=== PATIENT | female | born 1990 | race Asian ===

== ENCOUNTER 2023-12-20 09:14 | Emergency (ER) | payer MEDICAID, OTHER ==
[~2023-12-20] VITALS: Ht 154.9 cm; Wt 52.9 kg
[2023-12-20 10:24] LABS: Basophils # (auto) 0 10 ^3/uL (0-0.2); Basophils % (auto) 0.1 % (0.0-2.0); Eosinophils # (auto) 0.2 10 ^3/uL (0-0.8); Eosinophils % (auto) 2.4 % (0.0-7.0); Hemoglobin 12.3 g/dL (12.2-16.2); Lymphocytes # (auto) 1.3 10 ^3/uL (0.4-5.4); Lymphocytes % (auto) 13.1 % (10.0-50.0); Mean Corpuscular Hemoglobin 30.8 pg (28.0-32.0); Mean Corpuscular Hgb Conc. 33.3 g/dL (32.0-36.0); Mean Corpuscular Volume 92.6 fL (80.0-100.0); Monocytes # (auto) 0.6 10 ^3/uL (0-1.3); Monocytes % (auto) 5.6 % (0.0-12.0); Neutrophils % (auto) 78.8 % (37.0-80.0); Red Blood Cells 3.99 10^6/uL (4.0-5.20); Red Cell Distribution Width 13.9 % (11.8-14.3); White Blood Cell 10.2 10^3/uL (4.4-10.8)
[2023-12-20 10:25] LABS: Urine Bacteria FEW /hpf (None Seen); Urine Blood 3+ /uL (Negative); Urine Clarity Clear (Clear); Urine Color Light-Yellow (Yellow); Urine Protein, UAD Negative (Negative); Urine Urobilinogen Normal (Negative); Urine WBC 4 /hpf (0 - 5); Urine pH 6.5 (5.0-9.0)
[2023-12-20 10:55] LABS: Alanine Aminotransferase 39 U/L (7-40); Albumin 3.8 g/dL (3.2-4.8); Alkaline Phosphatase 52 U/L (46-116); Anion Gap 6 (5-15); Aspartate Aminotransferase 22 U/L (13-40); BUN/Creatinine Ratio 18.6 (10.0-20.0); Blood Urea Nitrogen 8 mg/dL (9-23); Calcium 8.6 mg/dL (8.5-10.1); Carbon Dioxide 26 mmol/L (20-30); Chloride 106 mmol/L (98-107); Glucose 117 mg/dL (74-106); Potassium 3.8 mmol/L (3.5-5.1); Sodium 138 mmol/L (136-145)
[2023-12-20 10:56] LABS: Bilirubin, Total 0.3 mg/dL (0.2-1.0); Total Protein 6.2 g/dL (5.7-8.2)
[2023-12-20 10:59] LABS: INR 0.94 (0.9-1.15); Partial Thromboplastin Time 25.4 SEC (24.5-34.5)
[2023-12-20] MEDS ORDERED: CEPH500T PO (11:52)
[2023-12-20 12:16] VITALS: BP 106/62; TEMP 98.7
[2023-12-20 12:17] VITALS: PULSE 90; RESP 16; O2SAT 99
== END 2023-12-20 12:19 | disposition home or self-care (01) ==
LOC: ER 09:14
DX: O23.42 Unspecified infection of urinary tract in pregnancy, second trimester (principal); R10.2 Pelvic and perineal pain; O26.892 Other specified pregnancy related conditions, second trimester; N39.0 Urinary tract infection, site not specified; Z3A.18 18 weeks gestation of pregnancy
CPT/HCPCS: 36415; 76805; 80053; 81001; 84702; 85025; 85610; 85730

== ENCOUNTER 2024-05-17 08:35 | Inpatient (IN) | payer MEDICAID ==
[~2024-05-17] VITALS: Ht 152.4 cm; Wt 63.5 kg
[~2024-05-17 08:35] MED LIST: CEPH500T PO
[2024-05-17] MEDS ORDERED: BUTORPHANOL TARTRATE 2 MG/1 ML VIAL IV PRN ×2 (09:00)
[2024-05-17] MEDS ORDERED: PREN-96 PO (09:10)
[2024-05-17 09:38] LABS: Basophils # (auto) 0 10 ^3/uL (0-0.2); Basophils % (auto) 0.1 % (0.0-2.0); Eosinophils # (auto) 0.1 10 ^3/uL (0-0.8); Eosinophils % (auto) 0.7 % (0.0-7.0); Hematocrit 44.4 % (36.0-46.0); Hemoglobin 15.4 g/dL (12.2-16.2); Lymphocytes # (auto) 1.4 10 ^3/uL (0.4-5.4); Mean Corpuscular Hemoglobin 31.8 pg (28.0-32.0); Mean Corpuscular Hgb Conc. 34.7 g/dL (32.0-36.0); Mean Corpuscular Volume 91.7 fL (80.0-100.0); Monocytes # (auto) 0.8 10 ^3/uL (0-1.3); Monocytes % (auto) 7.1 % (0.0-12.0); Neutrophils # (auto) 8.5 10 ^3/uL (1.6-8.6); Neutrophils % (auto) 79.1 % (37.0-80.0); Nucleated Red Blood Cells % 0.1 %; Platelet Count (auto) 183 10^3/uL (140-450); Red Blood Cells 4.84 10^6/uL (4.0-5.20); Red Cell Distribution Width 13.6 % (11.8-14.3); White Blood Cell 10.7 10^3/uL (4.4-10.8)
[2024-05-17 09:48] LABS: Urine Bacteria None Seen /hpf (None Seen)
[2024-05-17 09:51] LABS: Alanine Aminotransferase 18 U/L (7-40); Albumin 4.1 g/dL (3.2-4.8); Alkaline Phosphatase 185 U/L (46-116); Anion Gap 10 (5-15); Aspartate Aminotransferase 16 U/L (13-40); BUN/Creatinine Ratio 12.3 (10.0-20.0); Bilirubin, Total 0.6 mg/dL (0.2-1.0); Blood Urea Nitrogen 7 mg/dL (9-23); Calcium 9.3 mg/dL (8.7-10.4); Carbon Dioxide 23 mmol/L (20-31); Chloride 104 mmol/L (98-107); Glucose 142 mg/dL (74-106); Potassium 3.4 mmol/L (3.5-5.1); Sodium 137 mmol/L (136-145); Total Protein 6.9 g/dL (5.7-8.2)
[2024-05-17 10:05] LABS: Urine Blood Negative /uL (Negative); Urine Clarity Turbid (Clear); Urine Color Light-Yellow (Yellow); Urine Protein, UAD Negative (Negative); Urine Specific Gravity 1.006 (1.001-1.035); Urine Urobilinogen Normal (Negative); Urine WBC 13 /hpf (0 - 5)
[2024-05-17 10:14] LABS: INR 0.92 (0.9-1.15); Partial Thromboplastin Time 26.1 SEC (24.5-34.5); Prothrombin Time 9.8 sec (9.3-11.8)
[2024-05-17] MEDS ORDERED: TERBUTALINE SULFATE 1 MG/ML 1ML VIAL SC PRN (10:15)
[2024-05-17 10:19] LABS: Amphetamine Screen, Urine Neg (NEGATIVE); Barbiturate Scree,Urine Neg (NEGATIVE); Benzodiazephine Screen, Urine Neg (NEGATIVE); Cannabinoid Screen, Urine Neg (NEGATIVE); Cocaine Screen, Urine Neg (NEGATIVE); Opiate Scree,Urine Neg (NEGATIVE); Phencyclidine Screen, Urine Neg (NEGATIVE)
--- NOTE | 2024-05-17 10:56 | DVHHP2 ---
OB CC & HPI Date Date of Admission: May 17, 2024 Patient Identification: : 2 Para: 1 EDC: May 17, 2024 EGA: 40.0wks Chief Complaints: Reason for admission: induction of labor Indication for induction: post dates, other (AMA) History of Present Complaints 34yo IUP@40.0wks presents for scheduled induction for AMA/post dates. Denies UCs/LOF/VB/HUMPHREY/vision changes/RUQ pain. Endorses +FM. PNC: Routine PNC with Dr. Baugh at [facility] (formerly [facility])[3], adequate visits, PNC uncomplicated. GTT wnl, dating based on LMP c/w 15wk sono, GBS negative. OB hx: x1, uncomplicated Past Medical History Cardiac: No pertinent Hx Pulmonary: No pertinent Hx Central Nervous System: No pertinent Hx GI: No pertinent Hx Hemotology/Oncology: No pertinent Hx Hepatobiliary: No pertinent Hx Psychiatric: No pertinent Hx Musculoskeletal: No pertinent Hx Rheumotologic: No pertinent Hx Infectious Disease: No peritnent Hx ENT: No pertinent Hx Renal/: No pertinent Hx Endocrine: No pertinent Hx Dermatology: No pertinent Hx Past Surgical History: Other (right clavicle surgery x2) OB History OB History Care: Good Care Ultrasounds: Normal mid trimester US Obstetrical Complications: None Medical Complications: None Allergies: Coded Allergies: NO KNOWN ALLERGIES (Unverified , 12/20/23) Allergies NKDA Home Meds Active Scripts Cephalexin Monohydrate (Cephalexin) 500 Mg Tab, 1 TAB PO TID for 7 Days, #21 TAB Prov:REECEVALANJANA Joe DO 12/20/23 Reported Medications Vit W/ Ferrous Fumara ( One Daily) Daily Tab, 1 TAB PO DAILY, #90 TAB 3 Refills 05/17/24 Current Medications Current Medications Medications (Trade) Dose Ordered Sig/Christiano Route PRN Reason Start Time Stop Time Status Last Admin Lactated Ringer's 1,000 ml @ 125 mls/hr Q8H IV 05/17/24 09:00 Lydia Culver (Tucks) 1 pad PRN PRN TOP PERINEAL AREA DISCOMFORT 05/17/24 09:00 Sodium Lauryl Sulfate (Phisoderm) 240 ml PRN PRN TOP PERINEAL AREA DISCOMFORT 05/17/24 09:00 Benzocaine (Dermoplast) 1 applic PRN PRN TOP PERINEAL AREA DISCOMFORT 05/17/24 09:00 Butorphanol Tartrate (Stadol Injection) 1 mg Q4HPRN PRN IV MODERATE PAIN (4-6 PAIN SCALE) 05/17/24 09:00 Butorphanol Tartrate (Stadol Injection) 2 mg Q4HPRN PRN IV SEVERE PAIN (7-10 PAIN SCALE) 05/17/24 09:00 Lidocaine HCl (Xylocaine) 20 ml ONCE PRN IJ PERINEAL AREA DISCOMFORT 05/17/24 09:00 Oxytocin 1,000 ml @ 6 ml/hr Q24H IV 05/17/24 10:15 Terbutaline Sulfate (Brethine Inj) 0.25 mg ONCE PRN SC Uterine tachysystole 05/17/24 10:15 Family & Social History Family/Social History Past Family/Social History: denies Blood Type: AB+ Rubella: immune RPR/VDRL: Negative GBS Status: Negative HBsAG: Negative Review of Systems Constitutional: No symptom reported Ears, Nose, & Throat: No symptom reported Eyes: No symptom reported Pulmonary/Respiratory: No symptom reported Cardiovascular: No symptom reported Gastrointestinal: No symptom reported Genitourinary: No symptom reported Musculoskeletal: No symptom reported Skin: No symptom reported Psychiatric: No symptom reported Endocrine: No symptom reported Hemotologic/Lymphatic: No symptom reported OB Admission Exam Physical Exam Vitals: VSS, see chart HEENT: TMs Normal, Fontanelles Normal, Nasal Mucosa Normal, Eyes non-injected, Oropharynx Normal, PERRLA, Moist Membranes, EOMI Heart: Rhythm Normal Lungs: Clear Abdomen: Gravid Extremities: Normal Reflexes: Normal Pelvic Exam: EFW 7lbs 10oz SVE: 3/60/-2, vertex, reed balloon placed with 60ml NS (pt consented) Membranes: Intact Heart Rate: 150's Accelerations: Accelerations Present Decelerations: No Decelerations Rug Touch Up Painter Variability: Minimal (3-5) Contractions on Admission: 6-10 Minutes Apart Intensity: Mild OB Plan Plan Admitting Diagnosis: Induction of labor Plan: Induction (by CRB (reed balloon)) Other Plan: A: 34yo IUP@40.0wks Induction of Labor Category II EFM Intact Membranes GBS negative P: Admit to L&D Informed consent obtained Discussed risks, benefits, alternatives of IOL with CRB (reed balloon) then IV pitocin. Pt consents to POC. Intrauterine resuscitation IV fluid bolus and position change done, continue PRN RN to apply traction to CRB q1hr. Start IV pitocin when Category I EFM monitoring per order Routine labs ordered Pain mgmt PRN Frequent position changes in and out of bed encouraged Limit SVE unless necessary Anticipate CNM will consult with DENISE Moreno CNM May 17, 2024 10:56
[2024-05-17] MEDS: LACT. RINGERS/OXYTOCIN 20UNITS 1,000 ML IV SCH (13:11)
[2024-05-17] MEDS: HYDROCORTONE 1% TOPICAL CREAM 30 GM TUBE TOP PRN (14:58)
[2024-05-17] MEDS: DERMOPLAST 60ML BOTTLE TOP PRN (15:02)
[2024-05-17] MEDS: WITCH HAZEL-GLYCERIN PAD TOP PRN (15:02)
[2024-05-17] MEDS: PHISODERM TOP SOLN 240ML BTL TOP PRN (15:02)
[2024-05-17] MEDS: LACTATED RINGER'S 1,000 ML IV SCH (15:03)
[2024-05-17] MEDS: POTASSIUM CHL 20 Meq TABLET PO ONE (17:16)
--- NOTE | 2024-05-17 20:27 | DVHPN2 ---
[facility] Labor Progress Note Date and Time Seen Date Seen: May 17, 2024 Time Seen: 17:52 Subjective Patient reports: No new complaints Objective Vital Signs VSS, see chart Laboratory Tests Test 05/17/24 08:45 05/17/24 09:00 Range/Units Urine Color Light-yellow Yellow Urine Clarity Turbid H Clear Urine pH 6.0 5.0-9.0 Urine Specific [place] 1.006 1.001-1.035 Urine Protein Negative Negative Urine Ketones Negative Negative Urine Blood Negative Negative /uL Urine Nitrite Negative Negative Urine Bilirubin Negative Negative Urine Urobilinogen Normal Negative mg/dL Urine Leukocyte Esterase 3+ Negative /uL Urine RBC 3 0 - 4 /hpf Urine WBC 13 0 - 5 /hpf Urine Squamous Epithelial Cells Mod <5 /hpf Urine Bacteria None seen None Seen /hpf Urine Glucose 3+ H Normal mg/dL Urine Opiates Screen Neg NEGATIVE Urine Fentanyl Screen Neg NEGATIVE Urine Barbiturates Screen Neg NEGATIVE Urine Phencyclidine Screen Neg NEGATIVE Urine Amphetamines Screen Neg NEGATIVE Urine Benzodiazepines Screen Neg NEGATIVE Urine Cocaine Screen Neg NEGATIVE Urine Cannabinoids Screen Neg NEGATIVE White Blood Count 10.7 4.4-10.8 10^3/uL Red Blood Count 4.84 4.0-5.20 10^6/uL Hemoglobin 15.4 12.2-16.2 g/dL Hematocrit 44.4 36.0-46.0 % Mean Corpuscular Volume 91.7 80.0-100.0 fL Mean Corpuscular Hemoglobin 31.8 28.0-32.0 pg Mean Corpuscular Hemoglobin Concent 34.7 32.0-36.0 g/dL Red Cell Distribution Width 13.6 11.8-14.3 % Platelet Count 183 140-450 10^3/uL Mean Platelet Volume 8.3 6.9-10.8 fL Neutrophils (%) (Auto) 79.1 37.0-80.0 % Lymphocytes (%) (Auto) 13.0 10.0-50.0 % Monocytes (%) (Auto) 7.1 0.0-12.0 % Eosinophils (%) (Auto) 0.7 0.0-7.0 % Basophils (%) (Auto) 0.1 0.0-2.0 % Neutrophils # (Auto) 8.5 1.6-8.6 10 ^3/uL Lymphocytes # (Auto) 1.4 0.4-5.4 10 ^3/uL Monocytes # (Auto) 0.8 0-1.3 10 ^3/uL Eosinophils # (Auto) 0.1 0-0.8 10 ^3/uL Basophils # (Auto) 0 0-0.2 10 ^3/uL Nucleated Red Blood Cells 0.1 % Prothrombin Time 9.8 9.3-11.8 sec Prothrombin Time INR 0.92 0.9-1.15 Activated Partial Thromboplast Time 26.1 24.5-34.5 SEC Sodium Level 137 136-145 mmol/L Potassium Level 3.4 L 3.5-5.1 mmol/L Chloride Level 104 98-107 mmol/L Carbon Dioxide Level 23 20-31 mmol/L Anion Gap 10 5-15 Blood Urea Nitrogen 7 L 9-23 mg/dL Creatinine 0.57 0.550-1.02 mg/dL Glomerular Filtration Rate Calc 121 >90 mL/min BUN/Creatinine Ratio 12.3 10.0-20.0 Serum Glucose 142 H 74-106 mg/dL Calcium Level 9.3 8.7-10.4 mg/dL Total Bilirubin 0.6 0.2-1.0 mg/dL Aspartate Amino Transferase (AST) 16 13-40 U/L Alanine Aminotransferase (ALT) 18 7-40 U/L Alkaline Phosphatase 185 H 46-116 U/L Total Protein 6.9 5.7-8.2 g/dL Albumin 4.1 3.2-4.8 g/dL Rapid Plasma Reagin Pending Treponema pallidum Ab (TP-PA) Pending Hepatitis C Antibody Negative Negative Monitoring Method Monitoring Method: External Heart Rate Heart Rate Baseline: 145 Heart Rate Variability: Minimal (periods of moderate variability) Presence of FHR Accelerations: Yes Presence of FHR Decelerations: No Are all 5 Components of the FH: Yes Contractions Contractions Frequency: Other (q2-3 min) Duration of Contraction: 90 Contractions Intensity: Moderate Contractions Resting Tone: Relaxed Membranes Membranes: Intact Vaginal Exam Vag Exam Deferred: Yes (SVE by RN: /-2, reed CRB is out) Vaginal Exam Presentation: VTX Medications Medications - Pitocin: Yes (decreased to 6mu) Medications - Pain Medications: PRN Medication - Epidural: No Lab Results Lab Results Current Medications Medications (Trade) Dose Ordered Sig/Christiano Start Time Stop Time Status Last Admin Dose Admin Lactated Ringer's 1,000 ml @ 125 mls/hr Q8H 05/17/24 09:00 05/17/24 18:53 125 MLS/HR Lydia Culver (Tucks) 1 pad PRN PRN 05/17/24 09:00 05/17/24 15:02 1 PAD Sodium Lauryl Sulfate (Phisoderm) 240 ml PRN PRN 05/17/24 09:00 05/17/24 15:02 240 ML Benzocaine (Dermoplast) 1 applic PRN PRN 05/17/24 09:00 05/17/24 15:02 1 APPLIC Butorphanol Tartrate (Stadol Injection) 1 mg Q4HPRN PRN 05/17/24 09:00 Butorphanol Tartrate (Stadol Injection) 2 mg Q4HPRN PRN 05/17/24 09:00 Lidocaine HCl (Xylocaine) 20 ml ONCE PRN 05/17/24 09:00 Oxytocin 1,000 ml @ 6 ml/hr Q24H 05/17/24 10:15 05/17/24 13:11 6 ML/HR Terbutaline Sulfate (Brethine Inj) 0.25 mg ONCE PRN 05/17/24 10:15 Oxytocin 500 ml @ 999 mls/hr Q31M ONCE 05/17/24 10:15 05/17/24 10:45 DC Oxytocin 500 ml @ 125 mls/hr Q4H ONCE 05/17/24 10:45 05/17/24 14:44 DC Hydrocortisone (Hydrocortisone 1% Cream) 1 applic TID PRN 05/17/24 10:15 05/17/24 14:58 1 APPLIC Potassium Chloride (Klor-Con Tablet) 40 meq ONCE ONCE 05/17/24 15:00 05/17/24 15:10 DC 05/17/24 17:16 40 MEQ Laboratory Tests Test 05/17/24 09:00 05/17/24 08:45 Range/Units White Blood Count 10.7 4.4-10.8 10^3/uL Red Blood Count 4.84 4.0-5.20 10^6/uL Hemoglobin 15.4 12.2-16.2 g/dL Hematocrit 44.4 36.0-46.0 % Mean Corpuscular Volume 91.7 80.0-100.0 fL Mean Corpuscular Hemoglobin 31.8 28.0-32.0 pg Mean Corpuscular Hemoglobin Concent 34.7 32.0-36.0 g/dL Red Cell Distribution Width 13.6 11.8-14.3 % Platelet Count 183 140-450 10^3/uL Mean Platelet Volume 8.3 6.9-10.8 fL Neutrophils (%) (Auto) 79.1 37.0-80.0 % Lymphocytes (%) (Auto) 13.0 10.0-50.0 % Monocytes (%) (Auto) 7.1 0.0-12.0 % Eosinophils (%) (Auto) 0.7 0.0-7.0 % Basophils (%) (Auto) 0.1 0.0-2.0 % Neutrophils # (Auto) 8.5 1.6-8.6 10 ^3/uL Lymphocytes # (Auto) 1.4 0.4-5.4 10 ^3/uL Monocytes # (Auto) 0.8 0-1.3 10 ^3/uL Eosinophils # (Auto) 0.1 0-0.8 10 ^3/uL Basophils # (Auto) 0 0-0.2 10 ^3/uL Nucleated Red Blood Cells 0.1 % Prothrombin Time 9.8 9.3-11.8 sec Prothrombin Time INR 0.92 0.9-1.15 Activated Partial Thromboplast Time 26.1 24.5-34.5 SEC Sodium Level 137 136-145 mmol/L Potassium Level 3.4 L 3.5-5.1 mmol/L Chloride Level 104 98-107 mmol/L Carbon Dioxide Level 23 20-31 mmol/L Anion Gap 10 5-15 Blood Urea Nitrogen 7 L 9-23 mg/dL Creatinine 0.57 0.550-1.02 mg/dL Glomerular Filtration Rate Calc 121 >90 mL/min BUN/Creatinine Ratio 12.3 10.0-20.0 Serum Glucose 142 H 74-106 mg/dL Calcium Level 9.3 8.7-10.4 mg/dL Total Bilirubin 0.6 0.2-1.0 mg/dL Aspartate Amino Transferase (AST) 16 13-40 U/L Alanine Aminotransferase (ALT) 18 7-40 U/L Alkaline Phosphatase 185 H 46-116 U/L Total Protein 6.9 5.7-8.2 g/dL Albumin 4.1 3.2-4.8 g/dL Rapid Plasma Reagin Pending Treponema pallidum Ab (TP-PA) Pending Hepatitis C Antibody Negative Negative Urine Color Light-yellow Yellow Urine Clarity Turbid H Clear Urine pH 6.0 5.0-9.0 Urine Specific [place] 1.006 1.001-1.035 Urine Protein Negative Negative Urine Ketones Negative Negative Urine Blood Negative Negative /uL Urine Nitrite Negative Negative Urine Bilirubin Negative Negative Urine Urobilinogen Normal Negative mg/dL Urine Leukocyte Esterase 3+ Negative /uL Urine RBC 3 0 - 4 /hpf Urine WBC 13 0 - 5 /hpf Urine Squamous Epithelial Cells Mod <5 /hpf Urine Bacteria None seen None Seen /hpf Urine Glucose 3+ H Normal mg/dL Urine Opiates Screen Neg NEGATIVE Urine Fentanyl Screen Neg NEGATIVE Urine Barbiturates Screen Neg NEGATIVE Urine Phencyclidine Screen Neg NEGATIVE Urine Amphetamines Screen Neg NEGATIVE Urine Benzodiazepines Screen Neg NEGATIVE Urine Cocaine Screen Neg NEGATIVE Urine Cannabinoids Screen Neg NEGATIVE Assessment Assessment A: 34yo IUP@40.0wks Induction of Labor Category II EFM Intact Membranes GBS negative Plan Plan P: Continue IV pitocin titration per order monitoring per order Pain mgmt PRN Frequent position changes in and out of bed encouraged Limit SVE unless necessary Anticipate CNM will consult with Dr. Baugh PRN Plan discussed with: Patient, Spouse JEREMIEDENISE LOVELACE CNM May 17, 2024 20:27
[2024-05-18] VITALS (13 sets, daily range): BP systolic 87–105; BP diastolic 46–75; PULSE 102–117; RESP 14–18; TEMP 98.2–98.4; O2SAT 93–99
[2024-05-18] MEDS ORDERED: NALOXONE HCL 0.4 MG/ML VIAL IV ONE
[2024-05-18] MEDS ORDERED: METHYLERGONOVINE MALEATE 0.2 MG/ML AMP IM PRN
[2024-05-18] MEDS: LACTATED RINGER'S 1,000 ML IV ONE (00:09)
--- NOTE | 2024-05-18 00:40 | DVHPN2 ---
[facility] Labor Progress Note Date and Time Seen Date Seen: May 18, 2024 Time Seen: 00:28 Subjective Patient reports: Feels worse Subjective Comment Pt wants epidural and thinks her water broke. Objective Vital Signs VSS, see chart Vaginal bleeding noted with clots, no fluid noted on chux pad STAT sono done at bedside prior to SVE, ruled out placental abruption Monitoring Method Monitoring Method: External Heart Rate Heart Rate Baseline: 145 Heart Rate Variability: Minimal Presence of FHR Accelerations: No Presence of FHR Decelerations: Yes Heart Rate Type of Decel: Variable Decelerations, Late Decelerations Are all 5 Components of the FH: Yes Contractions Contractions Frequency: Other (q1.5-3min) Duration of Contraction: 100 Contractions Intensity: Moderate Contractions Resting Tone: Relaxed Membranes Membranes: Bulging Vaginal Exam Vag Exam Deferred: No Vaginal Exam Dilation: 8 Vaginal Exam Effacement: 90 Vaginal Exam Station: -1 Vaginal Exam Presentation: VTX Medications Medications - Pitocin: No (turned off) Medications - Pain Medications: PRN Medication - Epidural: No Lab Results Lab Results Current Medications Medications (Trade) Dose Ordered Sig/Christiano Start Time Stop Time Status Last Admin Dose Admin Lactated Ringer's 1,000 ml @ 125 mls/hr Q8H 05/17/24 09:00 05/17/24 18:53 125 MLS/HR Lydia Culver (Tucks) 1 pad PRN PRN 05/17/24 09:00 05/17/24 15:02 1 PAD Sodium Lauryl Sulfate (Phisoderm) 240 ml PRN PRN 05/17/24 09:00 05/17/24 15:02 240 ML Benzocaine (Dermoplast) 1 applic PRN PRN 05/17/24 09:00 05/17/24 15:02 1 APPLIC Butorphanol Tartrate (Stadol Injection) 1 mg Q4HPRN PRN 05/17/24 09:00 Butorphanol Tartrate (Stadol Injection) 2 mg Q4HPRN PRN 05/17/24 09:00 Lidocaine HCl (Xylocaine) 20 ml ONCE PRN 05/17/24 09:00 Oxytocin 1,000 ml @ 6 ml/hr Q24H 05/17/24 10:15 05/17/24 13:11 6 ML/HR Terbutaline Sulfate (Brethine Inj) 0.25 mg ONCE PRN 05/17/24 10:15 Oxytocin 500 ml @ 999 mls/hr Q31M ONCE 05/17/24 10:15 05/17/24 10:45 DC Oxytocin 500 ml @ 125 mls/hr Q4H ONCE 05/17/24 10:45 05/17/24 14:44 DC Hydrocortisone (Hydrocortisone 1% Cream) 1 applic TID PRN 05/17/24 10:15 05/17/24 14:58 1 APPLIC Potassium Chloride (Klor-Con Tablet) 40 meq ONCE ONCE 05/17/24 15:00 05/17/24 15:10 DC 05/17/24 17:16 40 MEQ Naloxone HCl (Narcan) 0.2 mg PRN ONCE 05/18/24 00:00 05/18/24 00:05 DC Ephedrine Sulfate (ePHEDrine SULFATE) 10 mg PRN ONCE 05/18/24 00:00 05/18/24 00:05 DC Fentanyl Citrate 100 mcg ONCE ONCE 05/18/24 00:00 05/18/24 00:05 DC Lidocaine HCl (Xylocaine-Pf 2% Injection) 10 ml ONCE ONCE 05/18/24 00:00 05/18/24 00:05 DC Lactated Ringer's 1,000 ml @ 1,000 mls/hr Q1H ONCE 05/18/24 00:00 05/18/24 00:59 05/18/24 00:09 1,000 MLS/HR Ondansetron HCl (Zofran) 4 mg Q6HPRN PRN 05/18/24 00:00 Methylergonovine Maleate (Methergine) 0.2 mg Q8HP PRN 05/18/24 00:00 05/19/24 23:59 Laboratory Tests Test 05/17/24 09:00 05/17/24 08:45 Range/Units White Blood Count 10.7 4.4-10.8 10^3/uL Red Blood Count 4.84 4.0-5.20 10^6/uL Hemoglobin 15.4 12.2-16.2 g/dL Hematocrit 44.4 36.0-46.0 % Mean Corpuscular Volume 91.7 80.0-100.0 fL Mean Corpuscular Hemoglobin 31.8 28.0-32.0 pg Mean Corpuscular Hemoglobin Concent 34.7 32.0-36.0 g/dL Red Cell Distribution Width 13.6 11.8-14.3 % Platelet Count 183 140-450 10^3/uL Mean Platelet Volume 8.3 6.9-10.8 fL Neutrophils (%) (Auto) 79.1 37.0-80.0 % Lymphocytes (%) (Auto) 13.0 10.0-50.0 % Monocytes (%) (Auto) 7.1 0.0-12.0 % Eosinophils (%) (Auto) 0.7 0.0-7.0 % Basophils (%) (Auto) 0.1 0.0-2.0 % Neutrophils # (Auto) 8.5 1.6-8.6 10 ^3/uL Lymphocytes # (Auto) 1.4 0.4-5.4 10 ^3/uL Monocytes # (Auto) 0.8 0-1.3 10 ^3/uL Eosinophils # (Auto) 0.1 0-0.8 10 ^3/uL Basophils # (Auto) 0 0-0.2 10 ^3/uL Nucleated Red Blood Cells 0.1 % Prothrombin Time 9.8 9.3-11.8 sec Prothrombin Time INR 0.92 0.9-1.15 Activated Partial Thromboplast Time 26.1 24.5-34.5 SEC Sodium Level 137 136-145 mmol/L Potassium Level 3.4 L 3.5-5.1 mmol/L Chloride Level 104 98-107 mmol/L Carbon Dioxide Level 23 20-31 mmol/L Anion Gap 10 5-15 Blood Urea Nitrogen 7 L 9-23 mg/dL Creatinine 0.57 0.550-1.02 mg/dL Glomerular Filtration Rate Calc 121 >90 mL/min BUN/Creatinine Ratio 12.3 10.0-20.0 Serum Glucose 142 H 74-106 mg/dL Calcium Level 9.3 8.7-10.4 mg/dL Total Bilirubin 0.6 0.2-1.0 mg/dL Aspartate Amino Transferase (AST) 16 13-40 U/L Alanine Aminotransferase (ALT) 18 7-40 U/L Alkaline Phosphatase 185 H 46-116 U/L Total Protein 6.9 5.7-8.2 g/dL Albumin 4.1 3.2-4.8 g/dL Rapid Plasma Reagin Pending Treponema pallidum Ab (TP-PA) Pending Hepatitis C Antibody Negative Negative Urine Color Light-yellow Yellow Urine Clarity Turbid H Clear Urine pH 6.0 5.0-9.0 Urine Specific [place] 1.006 1.001-1.035 Urine Protein Negative Negative Urine Ketones Negative Negative Urine Blood Negative Negative /uL Urine Nitrite Negative Negative Urine Bilirubin Negative Negative Urine Urobilinogen Normal Negative mg/dL Urine Leukocyte Esterase 3+ Negative /uL Urine RBC 3 0 - 4 /hpf Urine WBC 13 0 - 5 /hpf Urine Squamous Epithelial Cells Mod <5 /hpf Urine Bacteria None seen None Seen /hpf Urine Glucose 3+ H Normal mg/dL Urine Opiates Screen Neg NEGATIVE Urine Fentanyl Screen Neg NEGATIVE Urine Barbiturates Screen Neg NEGATIVE Urine Phencyclidine Screen Neg NEGATIVE Urine Amphetamines Screen Neg NEGATIVE Urine Benzodiazepines Screen Neg NEGATIVE Urine Cocaine Screen Neg NEGATIVE Urine Cannabinoids Screen Neg NEGATIVE Assessment Assessment 34yo IUP@40.1wks Induction of Labor Category II EFM Intact Membranes GBS negative Plan Plan RN to call anesthesia for epidural Intrauterine resuscitation PRN monitoring per order Frequent position changes in bed with peanut ball encouraged Limit SVE unless necessary Anticipate CNM will consult with Dr. Baugh PRN Plan discussed with: Patient DENISE HAIDER CNM May 18, 2024 00:40
--- NOTE | 2024-05-18 01:03 | DVH ---
OB ULTRASOUND <14 WEEKS: HISTORY: Bleeding TECHNIQUE: Multiple real-time grayscale sonographic images of the pelvis with duplex Doppler color f low, spectral and M-mode analysis. TRANSDUCERS: Findings/ IMPRESSION: Limited evaluation of the placenta. No evidence of previa or abruption.
--- NOTE | 2024-05-18 01:10 | EPIDURAL ---
Anesthesia Procedural Note - Epidural Informed consent obtained?: Yes Sterile prept drape: Yes Spinal level of insertion: L3-L4 Test dose of lidocaine & Epine: Negative Infusion started: Yes HORTENCIA BUCKLEY MD May 18, 2024 01:10
[2024-05-18] MEDS: ePHEDrine SULFATE 50 MG/ML AMP IV ONE (01:52)
[2024-05-18] MEDS: fentaNYL CITRATE 100 MCG/2 ML VL IV ONE (02:00)
[2024-05-18] MEDS: ROPIVACAINE HCL 200 ML ONE (02:03)
--- NOTE | 2024-05-18 03:52 | DVHPN2 ---
[facility] Labor Progress Note Date and Time Seen Date Seen: May 18, 2024 Time Seen: 03:32 Subjective Patient reports: No new complaints Objective Vital Signs VSS, see chart Monitoring Method Monitoring Method: External Heart Rate Heart Rate Baseline: 155 Heart Rate Variability: Minimal Presence of FHR Accelerations: Yes Presence of FHR Decelerations: No Changes in Trends of Patterns: No Are all 5 Components of the FH: Yes Contractions Contractions Frequency: Other (q3min) Duration of Contraction: 100 Contractions Intensity: Strong Contractions Resting Tone: Relaxed Membranes Membranes: Ruptured (AROM at 0332) Amniotic Fluid Color: Clear Vaginal Exam Vag Exam Deferred: No (SVE 9.5/100/0) Vaginal Exam Presentation: VTX Vaginal Exam Show: Moderate Medications Medications - Pitocin: No Medication - Epidural: Yes Lab Results Lab Results Vital Signs Date Time Temp Pulse Resp B/P (MAP) Pulse Ox O2 Delivery O2 Flow Rate FiO2 05/18/24 02:00 114/57 Current Medications Medications (Trade) Dose Ordered Sig/Christiano Start Time Stop Time Status Last Admin Dose Admin Lactated Ringer's 1,000 ml @ 125 mls/hr Q8H 05/17/24 09:00 05/18/24 01:54 125 MLS/HR Witch Abiola (Tucks) 1 pad PRN PRN 05/17/24 09:00 05/17/24 15:02 1 PAD Sodium Lauryl Sulfate (Phisoderm) 240 ml PRN PRN 05/17/24 09:00 05/17/24 15:02 240 ML Benzocaine (Dermoplast) 1 applic PRN PRN 05/17/24 09:00 05/17/24 15:02 1 APPLIC Butorphanol Tartrate (Stadol Injection) 1 mg Q4HPRN PRN 05/17/24 09:00 Butorphanol Tartrate (Stadol Injection) 2 mg Q4HPRN PRN 05/17/24 09:00 Lidocaine HCl (Xylocaine) 20 ml ONCE PRN 05/17/24 09:00 Oxytocin 1,000 ml @ 6 ml/hr Q24H 05/17/24 10:15 05/17/24 13:11 6 ML/HR Terbutaline Sulfate (Brethine Inj) 0.25 mg ONCE PRN 05/17/24 10:15 Oxytocin 500 ml @ 999 mls/hr Q31M ONCE 05/17/24 10:15 05/17/24 10:45 DC Oxytocin 500 ml @ 125 mls/hr Q4H ONCE 05/17/24 10:45 05/17/24 14:44 DC Hydrocortisone (Hydrocortisone 1% Cream) 1 applic TID PRN 05/17/24 10:15 05/17/24 14:58 1 APPLIC Potassium Chloride (Klor-Con Tablet) 40 meq ONCE ONCE 05/17/24 15:00 05/17/24 15:10 DC 05/17/24 17:16 40 MEQ Naloxone HCl (Narcan) 0.2 mg PRN ONCE 05/18/24 00:00 05/18/24 00:05 DC Ephedrine Sulfate (ePHEDrine SULFATE) 10 mg PRN ONCE 05/18/24 00:00 05/18/24 00:05 DC 05/18/24 01:52 10 MG Fentanyl Citrate 100 mcg ONCE ONCE 05/18/24 00:00 05/18/24 00:05 DC 05/18/24 02:00 100 MCG Lidocaine HCl (Xylocaine-Pf 2% Injection) 10 ml ONCE ONCE 05/18/24 00:00 05/18/24 00:05 DC Lactated Ringer's 1,000 ml @ 1,000 mls/hr Q1H ONCE 05/18/24 00:00 05/18/24 00:59 DC 05/18/24 00:09 1,000 MLS/HR Ondansetron HCl (Zofran) 4 mg Q6HPRN PRN 05/18/24 00:00 Methylergonovine Maleate (Methergine) 0.2 mg Q8HP PRN 05/18/24 00:00 05/19/24 23:59 Ropivacaine (Naropin) 12 mg O ONCE 05/18/24 02:00 05/18/24 02:16 DC Laboratory Tests Test 05/17/24 09:00 05/17/24 08:45 Range/Units White Blood Count 10.7 4.4-10.8 10^3/uL Red Blood Count 4.84 4.0-5.20 10^6/uL Hemoglobin 15.4 12.2-16.2 g/dL Hematocrit 44.4 36.0-46.0 % Mean Corpuscular Volume 91.7 80.0-100.0 fL Mean Corpuscular Hemoglobin 31.8 28.0-32.0 pg Mean Corpuscular Hemoglobin Concent 34.7 32.0-36.0 g/dL Red Cell Distribution Width 13.6 11.8-14.3 % Platelet Count 183 140-450 10^3/uL Mean Platelet Volume 8.3 6.9-10.8 fL Neutrophils (%) (Auto) 79.1 37.0-80.0 % Lymphocytes (%) (Auto) 13.0 10.0-50.0 % Monocytes (%) (Auto) 7.1 0.0-12.0 % Eosinophils (%) (Auto) 0.7 0.0-7.0 % Basophils (%) (Auto) 0.1 0.0-2.0 % Neutrophils # (Auto) 8.5 1.6-8.6 10 ^3/uL Lymphocytes # (Auto) 1.4 0.4-5.4 10 ^3/uL Monocytes # (Auto) 0.8 0-1.3 10 ^3/uL Eosinophils # (Auto) 0.1 0-0.8 10 ^3/uL Basophils # (Auto) 0 0-0.2 10 ^3/uL Nucleated Red Blood Cells 0.1 % Prothrombin Time 9.8 9.3-11.8 sec Prothrombin Time INR 0.92 0.9-1.15 Activated Partial Thromboplast Time 26.1 24.5-34.5 SEC Sodium Level 137 136-145 mmol/L Potassium Level 3.4 L 3.5-5.1 mmol/L Chloride Level 104 98-107 mmol/L Carbon Dioxide Level 23 20-31 mmol/L Anion Gap 10 5-15 Blood Urea Nitrogen 7 L 9-23 mg/dL Creatinine 0.57 0.550-1.02 mg/dL Glomerular Filtration Rate Calc 121 >90 mL/min BUN/Creatinine Ratio 12.3 10.0-20.0 Serum Glucose 142 H 74-106 mg/dL Calcium Level 9.3 8.7-10.4 mg/dL Total Bilirubin 0.6 0.2-1.0 mg/dL Aspartate Amino Transferase (AST) 16 13-40 U/L Alanine Aminotransferase (ALT) 18 7-40 U/L Alkaline Phosphatase 185 H 46-116 U/L Total Protein 6.9 5.7-8.2 g/dL Albumin 4.1 3.2-4.8 g/dL Rapid Plasma Reagin Pending Treponema pallidum Ab (TP-PA) Pending Hepatitis C Antibody Negative Negative Urine Color Light-yellow Yellow Urine Clarity Turbid H Clear Urine pH 6.0 5.0-9.0 Urine Specific [place] 1.006 1.001-1.035 Urine Protein Negative Negative Urine Ketones Negative Negative Urine Blood Negative Negative /uL Urine Nitrite Negative Negative Urine Bilirubin Negative Negative Urine Urobilinogen Normal Negative mg/dL Urine Leukocyte Esterase 3+ Negative /uL Urine RBC 3 0 - 4 /hpf Urine WBC 13 0 - 5 /hpf Urine Squamous Epithelial Cells Mod <5 /hpf Urine Bacteria None seen None Seen /hpf Urine Glucose 3+ H Normal mg/dL Urine Opiates Screen Neg NEGATIVE Urine Fentanyl Screen Neg NEGATIVE Urine Barbiturates Screen Neg NEGATIVE Urine Phencyclidine Screen Neg NEGATIVE Urine Amphetamines Screen Neg NEGATIVE Urine Benzodiazepines Screen Neg NEGATIVE Urine Cocaine Screen Neg NEGATIVE Urine Cannabinoids Screen Neg NEGATIVE Assessment Assessment 34yo IUP@40.1wks Induction of Labor Category II EFM Artificially Ruptured Membranes (clear) GBS negative Plan Plan Intrauterine resuscitation PRN Start IV pitocin when category I EFM monitoring per order Frequent position changes in bed with peanut ball encouraged Limit SVE unless necessary Anticipate CNM will consult with Dr. Baugh PRN Plan discussed with: Patient PIERRE NICHOLSON AUGUSTO May 18, 2024 03:52
--- NOTE | 2024-05-18 07:42 | DVHPN2 ---
Chief Complaints Patient reports: No new complaints Nursing reports: No new complaints Objective Vitals Vital Signs Date Time Temp Pulse Resp B/P (MAP) Pulse Ox O2 Delivery O2 Flow Rate FiO2 05/18/24 02:00 114/57 Medications Current Medications Medications (Trade) Dose Ordered Sig/Christiano Route PRN Reason Start Time Stop Time Status Last Admin Benzocaine (Dermoplast) 1 applic PRN PRN TOP PERINEAL AREA DISCOMFORT 05/17/24 09:00 05/17/24 15:02 Butorphanol Tartrate (Stadol Injection) 1 mg Q4HPRN PRN IV MODERATE PAIN (4-6 PAIN SCALE) 05/17/24 09:00 Butorphanol Tartrate (Stadol Injection) 2 mg Q4HPRN PRN IV SEVERE PAIN (7-10 PAIN SCALE) 05/17/24 09:00 Hydrocortisone (Hydrocortisone 1% Cream) 1 applic TID PRN TOP Itching 05/17/24 10:15 05/17/24 14:58 Lactated Ringer's 1,000 ml @ 125 mls/hr Q8H IV 05/17/24 09:00 05/18/24 01:54 Lidocaine HCl (Xylocaine) 20 ml ONCE PRN IJ PERINEAL AREA DISCOMFORT 05/17/24 09:00 Methylergonovine Maleate (Methergine) 0.2 mg Q8HP PRN IM POST HEMORRHAGE 05/18/24 00:00 05/19/24 23:59 Ondansetron HCl (Zofran) 4 mg Q6HPRN PRN IV NAUSEA / VOMITING 05/18/24 00:00 Oxytocin 1,000 ml @ 6 ml/hr Q24H IV 05/17/24 10:15 05/17/24 13:11 Sodium Lauryl Sulfate (Phisoderm) 240 ml PRN PRN TOP PERINEAL AREA DISCOMFORT 05/17/24 09:00 05/17/24 15:02 Terbutaline Sulfate (Brethine Inj) 0.25 mg ONCE PRN SC Uterine tachysystole 05/17/24 10:15 Witchristophe Abiola (Tucks) 1 pad PRN PRN TOP PERINEAL AREA DISCOMFORT 05/17/24 09:00 05/17/24 15:02 Others ve-10cm/100/0 Studies Laboratory Tests 05/17/24 09:00 Test 05/17/24 09:00 Range/Units Serum Glucose 142 H 74-106 mg/dL Ass/Plan Assessment active labor Plan trial of pushing failed pt is not feeling any ucs SHAYLEE PHAM DO May 18, 2024 07:42
[2024-05-18 08:06] LABS: RPR Non Reactive (Non Reactive)
[2024-05-18] MEDS ORDERED: ONDANSETRON HCL 4 MG/2 ML VIAL ONE (09:40)
[2024-05-18] MEDS ORDERED: fentaNYL CITRATE 100 MCG/2 ML VL ONE (09:40)
[2024-05-18] MEDS ORDERED: MORPHINE SULF PF 5 MG/10 ML VIAL ONE (09:40)
[2024-05-18] MEDS ORDERED: oxyTOCIN 10 UNIT/ML 10ML VIAL ONE (09:40)
[2024-05-18] MEDS ORDERED: MIDAZOLAM HCL 2MG/2ML 2ml VIAL (1mg/ml) ONE ×2 (09:40→10:51)
[2024-05-18] MEDS ORDERED: IBUP-1456 PO ×2 (09:41→19:20)
[2024-05-18] MEDS ORDERED: HYDR-4072 PO (09:41)
[2024-05-18] MEDS ORDERED: DOCU-94 PO (09:41)
[2024-05-18] MEDS ORDERED: SODIUM BICARB 8.4% 50Meq/50ml SYR Vial IV ONE (09:43)
[2024-05-18] MEDS ORDERED: ONDANSETRON HCL 4 MG/2 ML VIAL IV PRN ×2 (09:45)
--- NOTE | 2024-05-18 09:49 | DVHHP ---
CHIEF COMPLAINT: Failure to progress. HISTORY OF PRESENT ILLNESS: The patient is a 34-year-old 2, para 1 with EDC 05/17, estimated gestational age of 40+ weeks, admitted for induction of labor. The patient progressed to complete, but stayed at -1 station. She was swollen and was not able to push or bring down the vertex. PAST MEDICAL HISTORY: None. PAST SURGICAL HISTORY: None. SOCIAL HISTORY: None. FAMILY HISTORY: None. OBSTETRIC AND GYNECOLOGIC HISTORY: One normal vaginal delivery. REVIEW OF SYSTEMS: Consistent with HPI. PHYSICAL EXAMINATION: VITAL SIGNS: Stable, afebrile. HEENT: Within normal limits. CARDIOVASCULAR: Regular rate and rhythm. LUNGS: Clear to auscultation. BREASTS: Symmetrical. No masses. ABDOMEN: Gravid. Fundal height of 40. PELVIC: 10 cm -1. Swollen vulva. IMPRESSION: * An intrauterine at 40+ weeks, induction of labor, failed induction, failure to progress. * Suspect cephalopelvic disproportion. * Against medical advice. PLAN: Primary low transverse section. Informed consent obtained. Risks, complication of surgery including infection, bleeding, hematoma formation, injury to bowel, bladder, surrounding organs, possibility of DVT, pulmonary embolism, risk of anesthesia discussed with the patient. Options reviewed. All questions answered. The patient fully understands. She wishes to proceed with planned procedure. DO CATRACHITA Liu/MAKAYLA TID: [id number] RECEIPT: [id number]
--- NOTE | 2024-05-18 10:37 | DVHOP2 ---
Operative Report DATE OF OPERATION: 05/18/24 PREOPERATIVE DIAGNOSES: Term induction of labor,failed induction,failure to progress,ama,uterine atony POSTOPERATIVE DIAGNOSES: same SURGEON: Romana Baugh D.O./kelsie ANESTHESIOLOGIST: makayla TYPE OF ANESTHESIA : spinal CONSENT: The patient was informed of the risks and benefits of the procedure. The patient was informed of the risks and benefits of the procedure. These include but are not limited to , complications of anesthesia, postoperative infection, incomplete relief of symptoms, recurrence of symptoms, damage to blood vessels, nerves and tendons, deep venous thrombosis, pulmonary embolism and possible need for repeat surgery in the future. FINDINGS: Baby [g] with Apgars of [8] and [9]. Grossly normal appearing tubes and ovaries.8 lbs PROCEDURES: Primary low transverse section. PROCEDURE IN DETAIL: The patient was taken to the operating room. She already had an epidural in place. She was then placed in supine position with a leftward tilt. A Pfannenstiel skin incision was made 2 cm above the symphysis pubis. This incision was carried to the underlying layer of fascia. The fascia was nicked in the midline. The incision was extended laterally. The superior aspect of the fascial incision was grasped and elevated. The same procedure was done to the inferior aspect of the fascial incision. The rectus muscles were then in the midline. Peritoneum was identified and entered. Peritoneal incision was extended superiorly and inferiorly with good visualization of the bladder. Bladder blade was inserted. Vesicouterine peritoneum was identified and entered. Lower uterine segment was incised in a transverse fashion. The was delivered from vertex presentation. was baby [g] with Apgars [8] and [9]. Placenta was then removed manually. Uterus was exteriorized and cleared of all clots and debris. The incision was repaired using 0 Vicryl in a double-layered fashion. No bleeding was noted. Uterus was then returned to the abdomen. The gutters were cleared off all clots and debris.hemobate was given x1 for uterine atony Peritoneum was closed using 0 Vicryl, fascia was closed using 0 Maxon, and skin was closed using hosea. The patient tolerated the procedure well. She was taken to the recovery room in stable condition. ESTIMATED BLOOD LOSS: Estimated blood loss was noted to be 1000 mL. ROMANA BAUGH DO May 18, 2024 10:37
--- NOTE | 2024-05-18 10:41 | POSTOP ---
Post-Operative Note Post-Operative Note Preop Diagnosis iup at 40wks iol,failed induction ,ftp,ama,uterine atony Postop Diagnosis: same Operation performed pltcs Specimen ba by girl,8 lbs,apgas 8-9 Anesthesia: Regional Anesthesiologist: makayla Blood Loss(fluid mgmt) 1000ml Surgeon Romana Baugh Engineering Librarian kelsie Implant na Complications & Mgmt none Additional Remarks h and p [id number] Date 05/18/24 Time 10:37 ROMANA BAUGH DO May 18, 2024 10:41
[2024-05-18] MEDS: ceFAZolin 1GM/50ML 50 ML IV SCH (17:52)
[2024-05-18] MEDS: LIDOCAINE HCL 2 %PF INJ 10ML AMP IJ ONE ×3 (18:42→18:44)
[2024-05-18] MEDS: LACT. RINGERS/OXYTOCIN 20UNITS 500 ML IV ONE ×2 (18:42)
[2024-05-18] MEDS: ceFAZolin 1GM/50ML 50 ML IV ONE (18:43)
[2024-05-18] MEDS: CARBOPROST TROMETHAMINE 250 MCG/1ML VIAL IM ONE (18:43)
[2024-05-18] MEDS: LIDOCAINE 2% (LOCAL ANESTH.) PF 5ml SDV ONE (18:43)
[2024-05-18] MEDS: ROPIVACAINE HCL 400mg/200ml BAG (2mg/ml) EPI ONE (18:43)
[2024-05-18] MEDS: METHYLERGONOVINE MALEATE 0.2 MG/ML AMP IM ONE (18:44)
[2024-05-18] MEDS: LIDOCAINE 2%HCL (LOCAL ANESTH.) INJ 20ML MDV IJ PRN (18:45)
[2024-05-18] MEDS: BUPIVACAINE W/ EPINEPH 0.5% INJ 50ML MDV IJ ONE (18:45)
[2024-05-18] MEDS: ACETAMINOPHEN IV 1000 MG/100ML (10MG/ML) IV PRN (20:33)
[2024-05-18 21:21] LABS: Basophils # (auto) 0 10 ^3/uL (0-0.2); Basophils % (auto) 0.2 % (0.0-2.0); Eosinophils # (auto) 0 10 ^3/uL (0-0.8); Eosinophils % (auto) 0.1 % (0.0-7.0); Hematocrit 30.5 % (36.0-46.0); Hemoglobin 10.3 g/dL (12.2-16.2); Lymphocytes # (auto) 1.1 10 ^3/uL (0.4-5.4); Lymphocytes % (auto) 6.5 % (10.0-50.0); Mean Corpuscular Hemoglobin 30.9 pg (28.0-32.0); Mean Corpuscular Hgb Conc. 33.6 g/dL (32.0-36.0); Monocytes # (auto) 1.5 10 ^3/uL (0-1.3); Monocytes % (auto) 8.5 % (0.0-12.0); Neutrophils # (auto) 14.7 10 ^3/uL (1.6-8.6); Neutrophils % (auto) 84.7 % (37.0-80.0); Platelet Count (auto) 169 10^3/uL (140-450); Red Blood Cells 3.31 10^6/uL (4.0-5.20); Red Cell Distribution Width 13.5 % (11.8-14.3); White Blood Cell 17.4 10^3/uL (4.4-10.8)
[2024-05-18] MEDS: LACT. RINGERS/OXYTOCIN 20UNITS 1,000 ML IV ONE (21:32)
[2024-05-19] VITALS (14 sets, daily range): BP systolic 90–113; BP diastolic 47–68; PULSE 90–120; RESP 16–18; TEMP 98–99.3; O2SAT 93–99
--- NOTE | 2024-05-19 00:59 | DVHPN2 ---
Progress Note Date Seen: May 19, 2024 Subjective S: bleeding is less, tolerating diet well, denies lightheaded/dizziness, pain well controlled with IV medications, reed catheter still in place, no flatus/BM yet, ambulating well, vital signs Vital Sign Date Time Temp Pulse Resp B/P (MAP) Pulse Ox O2 Delivery O2 Flow Rate FiO2 05/18/24 22:00 117 18 95 05/18/24 18:45 Room Air 05/18/24 18:45 98.4 95/53 (67) 98.4 05/18/24 11:30 0 96 Total Intake and Output 05/18/24 05/18/24 05/19/24 15:00 23:00 07:00 Intake Total 1445 ml Output Total 125 ml 950 ml Balance -125 ml 495 ml medications Current Medications Medications Dose Ordered Sig/Christiano Route Start Time Stop Time Status Last Admin Dose Admin Lactated Ringer's 1,000 ml @ 125 mls/hr Q8H IV 05/17/24 09:00 05/18/24 19:39 125 MLS/HR Lydia Culver 1 pad PRN PRN TOP 05/17/24 09:00 05/17/24 15:02 1 PAD Sodium Lauryl Sulfate 240 ml PRN PRN TOP 05/17/24 09:00 05/17/24 15:02 240 ML Benzocaine 1 applic PRN PRN TOP 05/17/24 09:00 05/17/24 15:02 1 APPLIC Butorphanol Tartrate 1 mg Q4HPRN PRN IV 05/17/24 09:00 Butorphanol Tartrate 2 mg Q4HPRN PRN IV 05/17/24 09:00 Lidocaine HCl 20 ml ONCE PRN IJ 05/17/24 09:00 Oxytocin 1,000 ml @ 6 ml/hr Q24H IV 05/17/24 10:15 05/17/24 13:11 6 ML/HR Terbutaline Sulfate 0.25 mg ONCE PRN SC 05/17/24 10:15 Hydrocortisone 1 applic TID PRN TOP 05/17/24 10:15 05/17/24 14:58 1 APPLIC Methylergonovine Maleate 0.2 mg Q8HP PRN IM 05/18/24 00:00 05/19/24 23:59 Ondansetron HCl 4 mg Q4HP PRN IV 05/18/24 09:45 Cefazolin Sodium 50 ml @ 100 mls/hr Q8H IV 05/18/24 09:45 05/19/24 02:14 05/18/24 17:52 100 MLS/HR Acetaminophen 1,000 mg [id number] PRN IV 05/18/24 18:45 05/19/24 22:01 05/18/24 20:33 1,000 MG laboratory and microbiology Laboratory Tests 05/18/24 20:57 05/17/24 09:00 Test 05/17/24 09:00 Range/Units Serum Glucose 142 H 74-106 mg/dL Objective O: VSS Chest: heart sounds normal and lung sounds clear bilaterally Abd: soft, non-tender, fundus at U/firm/midline, active bowel sounds, no rebound or guarding Incision: sylke dressing open to air, clean/dry/intact Ext: Non-tender, No edema, 2+ BLE DTRs Lochia: minimal See lab results Problems(with codes): (1) Precipitous drop in hematocrit (2) S/P primary low transverse Assessment/Plan A: 34yo now PPD#1 s/p primary P: Continue with routine post-op PP care RN to d/c derek Plan discussed with: Patient, Spouse DENISE HAIDER CNM May 19, 2024 00:59
[2024-05-19] MEDS: ACETAMINOPHEN IV 1000 MG/100ML (10MG/ML) IV PRN (04:19)
[2024-05-19 08:40] LABS: Basophils # (auto) 0 10 ^3/uL (0-0.2); Basophils % (auto) 0.2 % (0.0-2.0); Eosinophils # (auto) 0 10 ^3/uL (0-0.8); Eosinophils % (auto) 0.1 % (0.0-7.0); Hematocrit 32.4 % (36.0-46.0); Hemoglobin 10.8 g/dL (12.2-16.2); Lymphocytes # (auto) 1.9 10 ^3/uL (0.4-5.4); Lymphocytes % (auto) 10.3 % (10.0-50.0); Mean Corpuscular Hemoglobin 30.9 pg (28.0-32.0); Mean Corpuscular Hgb Conc. 33.4 g/dL (32.0-36.0); Mean Corpuscular Volume 92.4 fL (80.0-100.0); Monocytes # (auto) 1.4 10 ^3/uL (0-1.3); Monocytes % (auto) 7.2 % (0.0-12.0); Neutrophils # (auto) 15.4 10 ^3/uL (1.6-8.6); Neutrophils % (auto) 82.2 % (37.0-80.0); Platelet Count (auto) 190 10^3/uL (140-450); Red Blood Cells 3.51 10^6/uL (4.0-5.20); Red Cell Distribution Width 13.8 % (11.8-14.3); White Blood Cell 18.7 10^3/uL (4.4-10.8)
[2024-05-19] MEDS: ceFAZolin 1GM/50ML 50 ML IV SCH (09:33)
[2024-05-19] MEDS ORDERED: CEPH500T PO (09:44)
--- NOTE | 2024-05-19 09:44 | DVHPN2 ---
Chief Complaints Patient reports: No new complaints Nursing reports: No new complaints Objective Vitals Vital Signs Date Time Temp Pulse Resp B/P (MAP) Pulse Ox O2 Delivery O2 Flow Rate FiO2 05/19/24 05:00 104 16 93 05/18/24 23:00 98.2 92/46 (61) 98.2 05/18/24 18:45 Room Air 05/18/24 11:30 0 96 Medications Current Medications Medications (Trade) Dose Ordered Sig/Christiano Route PRN Reason Start Time Stop Time Status Last Admin Acetaminophen (Ofirmev) 1,000 mg Q8HPRN PRN IV PAIN SCALE 1-3 OR TEMP>100.4 05/19/24 04:15 05/19/24 22:01 05/19/24 04:19 Cefazolin Sodium 50 ml @ 100 mls/hr Q8HR IV 05/19/24 10:00 05/19/24 09:33 Ondansetron HCl (Zofran) 4 mg Q4HP PRN IV NAUSEA / VOMITING 05/18/24 09:45 General: Normal Lungs: Normal Cardiovascular: Normal Abdominal: Soft Extremities: Normal Studies Laboratory Tests 05/19/24 08:21 05/17/24 09:00 Test 05/17/24 09:00 Range/Units Serum Glucose 142 H 74-106 mg/dL Ass/Plan Assessment S/P PCS Plan SUPPORTIVE CARE SHAYLEE PHAM DO May 19, 2024 09:44
[2024-05-19] MEDS ORDERED: HYDROcodone-ACET 5/325MG TAB PO PRN (15:15)
[2024-05-19] MEDS: HYDROcodone-ACET 5/325MG TAB PO PRN (16:09)
[2024-05-19] MEDS: SIMETHICONE 80 MG CHEWABLE TABLET PO SCH (18:14)
[2024-05-19] MEDS: DOCUSATE SOD 100 MG CAP PO SCH (22:15)
[2024-05-19] MEDS: IBUPROFEN 800 MG TAB PO PRN (23:58)
[2024-05-20 03:06] VITALS: BP 97/57; PULSE 103; RESP 16; TEMP 98.4; O2SAT 95
[2024-05-20 06:59] VITALS: BP 104/67; PULSE 111; RESP 18; TEMP 97.5; O2SAT 97
--- NOTE | 2024-05-20 07:23 | DVHDS2 ---
Obstetrics Discharge Summary Obstetrics Discharge Summary Date of Admission: May 17, 2024 Date of Discharge: May 20, 2024 Reason For Admission: Induction of Labor Procedures: NST Intrapartum Procedures: (Low Cervical Transverse) Procedures: None Operative Complicat: None Discharge Diagnosis: Term -Delivered Discharge Information: Activity (Other), Diet (Routine), Medications (Name:), Instructions (Routine), Discharge to (Home), Discarge date (05-20) SHAYLEE PHAM DO May 20, 2024 07:23
--- NOTE | 2024-05-20 07:23 | DVHPN2 ---
Chief Complaints Patient reports: No new complaints Nursing reports: No new complaints Objective Vitals Vital Signs Date Time Temp Pulse Resp B/P (MAP) Pulse Ox O2 Delivery O2 Flow Rate FiO2 05/20/24 06:59 97.5 111 18 104/67 (79) 97 97.5 05/19/24 18:30 Room Air 05/18/24 11:30 0 96 Medications Current Medications Medications (Trade) Dose Ordered Sig/Christiano Route PRN Reason Start Time Stop Time Status Last Admin Acetaminophen/ Hydrocodone Bitart ([place] 5/325MG Tab) 1 tab Q4HPRN PRN PO FOR PAIN 1-6 05/19/24 15:15 Acetaminophen/ Hydrocodone Bitart ([place] 5/325MG Tab) 2 tab Q4HPRN PRN PO FOR PAIN 7-10 05/19/24 15:15 05/19/24 20:14 Cefazolin Sodium 50 ml @ 100 mls/hr Q8HR IV 05/19/24 10:00 05/20/24 02:31 Dimethicone (Mylicon Tab) 80 mg QID PO 05/19/24 18:00 05/20/24 05:30 Docusate Calcium (Surfak Capsule) 240 mg DAILY PO 05/20/24 10:00 Docusate Sodium (Colace Capsule) 100 mg Q12HR PO 05/19/24 22:00 05/19/24 22:15 Ibuprofen (Motrin Tablet) 800 mg Q8HP PRN PO BREAKTHROUGH PAIN 05/19/24 15:15 05/19/24 23:58 General: Normal Lungs: Normal Cardiovascular: Normal Abdominal: Soft Extremities: Normal Studies Laboratory Tests 05/19/24 08:21 05/17/24 09:00 Test 05/17/24 09:00 Range/Units Serum Glucose 142 H 74-106 mg/dL Ass/Plan Assessment S/P PCS Plan dc home fu 1wk SHAYLEE PHAM DO May 20, 2024 07:23
[2024-05-20] MEDS ORDERED: DOCUSATE CALCIUM 240 MG CAP PO SCH (10:00)
== END 2024-05-20 10:14 | disposition home or self-care (01) | DRG 540 ==
LOC: LDRP 08:35
PROVIDERS: ADMIT Obstetrics & Gynecology; ATTEND Obstetrics & Gynecology
PROC: 10D00Z1 Extraction of Products of Conception, Low, Open Approach (ICD-10-PCS; principal; 2024-05-18 09:44)
DX: O48.0 Post-term pregnancy (principal); O61.9 Failed induction of labor, unspecified; O76 Abnormality in fetal heart rate and rhythm complicating labor and delivery; O62.2 Other uterine inertia; Z37.0 Single live birth; Z3A.40 40 weeks gestation of pregnancy
CPT/HCPCS: 36415; 59025; 59200; 62282; 76815; 80053; 80307; 81001; 81002; 85025; 85610; 85730; 86592; 86780; 86803; 86850; 86900; 86901; 94760; 94762; 96360; 96361; 96365; 96366; 96374; 96375; G0378; J0131; J2003; J2250; J2405; J2590